=== PATIENT | female | born 1960 | race Caucasian/White ===

== ENCOUNTER → 2018-06-01 13:29 | Outpatient (CLI) | payer OTHER, SELFPAY ==
--- NOTE | 2018-06-01 | OV.WND_ITS ---
Progress Note Details Patient Name: Shonda Fitzgerald Patient Number: [id number] PatientPatientDate: 06/01/2018 Clinician: Aileen Amor Physician / Remote Mortgage Underwriter: Navid Sanches SUBJECTIVE Chief Complaint This information was obtained from the patient Non-healing wound, post MOHS to Right lower extremety. Allergies penicillin, Percodan, biax, shellfish derived HPI This information was obtained from the patient 06/01/18. Seen by Dr. Sanches. 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 She reports persistent pain at the ulcer site, but no fever or other acute symptoms, and is not currently on antibiotics. Social History This information was obtained from the patient Current every day smoker, Alcohol Use - Rarely, Children - 1, Lives in - Private home, Marital Status - , Occupation - dining room supervisor, Tobacco Use (deprecated) - less than 1/2 ppd Past Medical History This information was obtained from the patient Patient has a medical history of: Dario's thyroiditis Anxiety Hypertension Surgical History This information was obtained from the patient Patient has a surgical history of: Ovary removed Ovarian cyst removed Skin cancer removal Complaints and Symptoms This information was obtained from the patient Patient complains of: General Notes: I have reviewed and concur with the Review of Systems and Past Family Social History documents completed by the clinician, I have reviewed and concur with the Wound Assessment document completed by the clinician Integumentary (Hair/Skin/Nails): Open Sore Prior Wound History: Drainage, Erythema, Pain Patient denies complaints or symptoms related to: Cardiovascular (Central): Irregular heart beat Cardiovascular (Central/Peripheral): Intermittent Claudication, Lower extremity (leg) resting pain, Lower extremity (leg) swelling Constitutional Symptoms (General Health): Chills, Fever Ear/Nose/Mouth/Throat: Hearing Loss / Aid Hematologic/Lymphatic: Bleeding / Clotting Disorders, Bleeding Tendency Neurological: Loss of Protective Sensation Respiratory: Shortness of Breath General Notes: Up to date Additional Information Does patient have a history of Cancer? Yes? Complete all questions.: Yes Location of Cancer: Skin Patient underwent Radiation Treatment? If yes, answer question below.: No Medications atorvastatin 40 mg tablet oral tablet oral once daily metoprolol tartrate 50 mg tablet oral tablet oral once daily fenofibrate 40 mg tablet oral tablet oral once daily escitalopram 5 mg tablet oral tablet oral once daily gentamicin 0.1 % topical ointment topical ointment topical once daily for 7 days for infected ulcer OBJECTIVE Constitutional BP normal; Low grade fever; Alert and in no distress. Well developed. Alert. Clean appearing.. Height/Length: 65 in (165.1 cm), Weight: 189 lbs (85.91 kgs), BMI: 31.4, Temperature: 99.1 ?F (37.28 ?C), Pulse: 53 bpm, Respiratory Rate: 16 breaths/min, Blood Pressure: 135/75 mmHg, Pulse Oximetry: 96 %. Ears, Nose, Mouth, and Throat: No clinically significant hearing loss on informal examination. Respiratory: No respiratory distress. Even respirations and without use of accessory muscles.. Cardiovascular: Pedal pulses 2+ on affected limb. Affected extremity exhibits no peripheral edema or cyanosis, is warm, and is well perfused. Capillary refill is less than 2 seconds. Integumentary (Hair, Skin) Mild periwound erythema without warmth. Refer to appropriate clinician wound documentation for this visit; right lower leg ulcer extends to subcut with base partially covered with pink granulation, remainder fibrin and slough. Wound #1 Right, Posterior Leg is a chronic Full Thickness Surgical Wound and has received a status of Not Healed. Initial wound encounter measurements are 1.2cm length x 1.5cm width x 0.1cm depth, with an area of 1.8 sq cm and a volume of 0.18 cubic cm. No tunneling has been noted. No sinus tract has been noted. No undermining has been noted. There is a moderate amount of serous drainage noted which has no odor. The patient reports a wound pain of level 4/10. The wound margin is attached. Wound bed has Yes epithelialization, No eschar, Yes slough, Yes pink, firm granulation. The periwound skin texture is normal. The periwound skin moisture is normal. The periwound skin color is normal. The temperature of the periwound skin is WNL. Periwound skin does not exhibit signs or symptoms of infection. Local Pulse is Palpable. Neurological: Cranial nerves grossly intact with symmetric function normal by informal observation.. ASSESSMENT Active Problems ICD-10 (Encounter Diagnosis) L97.522 - Non-pressure chronic ulcer of other part of left foot with fat layer exposed (Encounter Diagnosis) L08.89 - Other specified local infections of the skin and subcutaneous tissue PROCEDURES Wound #1 Wound #1 (Surgical Wound) is located on the right, posterior leg. A skin/ subcutaneous tissue level surgical debridement with a total area debrided of 1.8 sq cm was performed by Navid Sanches MD. Subcutaneous was removed along with devitalized tissue: exudate and slough. The following instrument(s) were used: curette. Pain control was achieved using 4% Lido. A time out was conducted prior to the start of the procedure. A minimal amount of bleeding was controlled with n/a. The procedure was tolerated well with a pain level of 0 throughout and a pain level of 0 following the procedure. Post Debridement Measurements: 1.2cm length x 1.5cm width x 0.2cm depth; with an area of 1.8 sq cm and a volume of 0.36 cubic cm; Additional Information Muscle fascia or bone removed and sent to pathology?: No PLAN Wound Orders: Wound #1 Right, Posterior Leg Anesthetic Topical Xylocaine to wound bed. - In clinic only Cleanser Cleanse Wound: - Normal saline in clinic May Shower. - Please avoid getting tap water in wound or on dressing. Please cover while in the shower Topical Treatments Antibiotic/Antimicrobial Ointment/Cream. - Gentamicin ointment. Dressings Primary dressing: - Bordered foam Change Dressing: - Every other day Additional Orders: Follow-Up Appointments Return Appointment: - - One week Other information: If you develop fever, chills, increased pain, drainage, redness or swelling please call our office. If after hours, respond to the ER. Should you experience any significant changes in your wound(s) or have any questions regarding your home care instructions please contact the wound center @ [phone]. If after hours, contact your primary care physician or go to the hospital emergency room. Scribing Attestation I attest, as the nurse, that I scribed these orders for the physician. Laboratory: Culture Wound General Notes: We will call with any positive wound cultures requiring oral antibiotics. I've reviewed the clinician's documentation and agree with the evaluation and plan as written. In addition, the patient's ulcer demonstrates evidence of non-viable devitalized tissue which will continue to benefit from sharp debridement to help promote granulation and expedite healing. Also, I've cultured the ulcer and will start treating a wound infection with topical gentamicin then add an oral antibiotic pending the culture results. Electronic Signature(s) Signed By: Date: Navid Sanches MD 06/22/2018 08:43:34 Entered By: Navid Sanches on 06/22/2018 08:18:22
== END ==
PROVIDERS: PCP Physician Assistant Medical; Referring Provider Dermatology MOHS-Micrographic Surgery; Visit Provider Internal Medicine
DX: L97.522 Non-pressure chronic ulcer of other part of left foot with fat layer exposed (principal); L08.89 Other specified local infections of the skin and subcutaneous tissue
CPT/HCPCS: 11042; 87070; 87075; 87077; 87147; 87186; 87205; 99213

== ENCOUNTER → 2018-06-08 08:33 | Outpatient (CLI) | payer OTHER, SELFPAY ==
--- NOTE | 2018-06-08 | OV.WND_ITS ---
Progress Note Details Patient Name: Shonda Fitzgerald Patient Number: [id number] PatientPatientDate: 06/08/2018 Clinician: Santa Zhong Clinician Cosigner: [place] Physician / Hearing Aid Technician: Navid Sanches SUBJECTIVE Chief Complaint This information was obtained from the patient Non-healing wound, post MOHS to Right lower extremity. Allergies penicillin, Percodan, biax, shellfish derived HPI This information was obtained from the patient 06/08/18. Seen by Dr. Sanches. The patient does not report pain or significant drainage associated with the right lower leg non-pressure ulcer that started as a surgical wound following a Moh's procedure and she's applying topical gentamicin as recommended to treat the recent coag negative Staph culture. 06/01/18. Seen by Dr. Sanches. 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 She reports persistent pain at the ulcer site, but no fever or other acute symptoms, and is not currently on antibiotics. Past Medical History This information was obtained from the patient Patient has a medical history of: Dario's thyroiditis Anxiety Hypertension Complaints and Symptoms This information was obtained from the patient Patient complains of: General Notes: I have reviewed and concur with the Review of Systems and Past Family Social History documents completed by the clinician, I have reviewed and concur with the Wound Assessment document completed by the clinician Integumentary (Hair/Skin/Nails): Open Sore Prior Wound History: Drainage, Erythema, Pain Patient denies complaints or symptoms related to: Cardiovascular (Central): Irregular heart beat Cardiovascular (Central/Peripheral): Intermittent Claudication, Lower extremity (leg) resting pain, Lower extremity (leg) swelling Constitutional Symptoms (General Health): Chills, Fever Ear/Nose/Mouth/Throat: Hearing Loss / Aid Hematologic/Lymphatic: Bleeding / Clotting Disorders, Bleeding Tendency Neurological: Loss of Protective Sensation Respiratory: Shortness of Breath Additional Information Does patient have a history of Cancer? Yes? Complete all questions.: Yes Location of Cancer: Skin Patient underwent Radiation Treatment? If yes, answer question below.: No OBJECTIVE Constitutional BP elevated; Afebrile; Alert and in no distress. Well developed. Alert. Clean appearing.. Height/Length: 65 in (165.1 cm), Weight: 187.8 lbs (85.36 kgs), BMI: 31.2, Temperature: 98.9 ?F (37.17 ?C), Pulse: 56 bpm, Respiratory Rate: 16 breaths/min, Blood Pressure: 143/72 mmHg, Pulse Oximetry: 97 %. Cardiovascular: Affected extremity exhibits no peripheral edema or cyanosis, is warm, and is well perfused. Capillary refill is less than 2 seconds. Integumentary (Hair, Skin) No periwound erythema, warmth, or significant drainage. No periwound rashes appreciated or noted otherwise.. Refer to appropriate clinician wound documentation for this visit; right lower leg ulcer extends to subcut with base partially covered with pink granulation, remainder fibrin and slough. Wound #1 Right, Posterior Leg is a chronic Full Thickness Surgical Wound and has received a status of Not Healed. Subsequent wound encounter measurements are 1cm length x 0.6cm width x 0.2cm depth, with an area of 0.6 sq cm and a volume of 0.12 cubic cm. No tunneling has been noted. No sinus tract has been noted. No undermining has been noted. There is a scant amount of serous drainage noted which has no odor. The patient reports a wound pain of level 4/10. The wound margin is attached. Wound bed has Yes epithelialization, No eschar, Yes slough, Yes pink, firm granulation. The periwound skin texture is normal. The periwound skin color is normal. The periwound skin did not exhibit: Dry/Scaly, Maceration. The temperature of the periwound skin is WNL. Periwound skin does not exhibit signs or symptoms of infection. Local Pulse is Palpable. Neurological: Cranial nerves grossly intact with symmetric function normal by informal observation.. ASSESSMENT Active Problems ICD-10 (Encounter Diagnosis) L97.522 - Non-pressure chronic ulcer of other part of left foot with fat layer exposed (Encounter Diagnosis) B95.7 - Other staphylococcus as the cause of diseases classified elsewhere PROCEDURES Wound #1 Wound #1 (Surgical Wound) is located on the right, posterior leg. A skin/ subcutaneous tissue level surgical debridement with a total area debrided of 0.6 sq cm was performed by Navid Sanches MD. Subcutaneous was removed along with devitalized tissue: exudate and slough. The following instrument(s) were used: curette. Pain control was achieved using 4% Lido. A time out was conducted prior to the start of the procedure. A moderate amount of bleeding was controlled with silver nitrate. The procedure was tolerated well with a pain level of 0 throughout and a pain level of 0 following the procedure. Post Debridement Measurements: 1cm length x 0.6cm width x 0.3cm depth; with an area of 0.6 sq cm and a volume of 0.18 cubic cm; Additional Information Muscle fascia or bone removed and sent to pathology?: No PLAN Wound Orders: Wound #1 Right, Posterior Leg Anesthetic Topical Xylocaine to wound bed. - In clinic only. Cleanser Cleanse Wound: - Normal saline in clinic. Distilled water at home. May Shower. - Please avoid getting tap water in wound or on dressing. Please cover while in the shower. Topical Treatments Antibiotic/Antimicrobial Ointment/Cream. - Gentamicin ointment. Dressings Primary dressing: - Bordered foam. Change Dressing: - Every other day. Follow-Up Appointments Return Appointment: - - One week. Other information: If you develop fever, chills, increased pain, drainage, redness or swelling please call our office. If after hours, respond to the ER. Should you experience any significant changes in your wound(s) or have any questions regarding your home care instructions please contact the wound center @ [phone]. If after hours, contact your primary care physician or go to the hospital emergency room. Scribing Attestation I attest, as the nurse, that I scribed these orders for the physician. I've reviewed the clinician's documentation and agree with the evaluation and plan as written. In addition, the patient's ulcer demonstrates evidence of non-viable devitalized tissue which will continue to benefit from sharp debridement to help promote granulation and expedite healing. Also, we'll continue treating the Staph infection with topical gentamicin. Electronic Signature(s) Signed By: Date: Navid Sanches MD 06/09/2018 13:52:56 Entered By: Navid Sanches on 06/09/2018 13:45:14
== END ==
PROVIDERS: PCP Physician Assistant Medical; Visit Provider Internal Medicine
DX: B95.7 Other staphylococcus as the cause of diseases classified elsewhere (principal); L97.812 Non-pressure chronic ulcer of other part of right lower leg with fat layer exposed
CPT/HCPCS: 11042

== ENCOUNTER → 2018-06-16 08:34 | Outpatient (CLI) | payer OTHER, SELFPAY ==
--- NOTE | 2018-06-16 | OV.WND_ITS ---
Progress Note Details Patient Name: Shonda Fitzgerald Patient Number: [id number] PatientPatientDate: 06/16/2018 Clinician: Jessica Hanna Clinician Cosigner: [place] Physician / Diesel Engine Fitter: Navid Sanches SUBJECTIVE Chief Complaint This information was obtained from the patient Non-healing wound, post MOHS to Right lower extremity. Allergies penicillin, Percodan, biax, shellfish derived HPI This information was obtained from the patient 06/16/18. Seen by Dr. Sanches. The patient does not report pain or significant drainage associated with the right lower leg non-pressure ulcer since her last visit and she's applying topical gentamicin as recommended to treat the recent coag negative Staph culture. 06/08/18. Seen by Dr. Sanches. The patient does not report pain or significant drainage associated with the right lower leg non-pressure ulcer that started as a surgical wound following a Moh's procedure and she's applying topical gentamicin as recommended to treat the recent coag negative Staph culture. 06/01/18. Seen by Dr. Sanches. 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 She reports persistent pain at the ulcer site, but no fever or other acute symptoms, and is not currently on antibiotics. Past Medical History This information was obtained from the patient Patient has a medical history of: Dario's thyroiditis Anxiety Hypertension Complaints and Symptoms This information was obtained from the patient Patient complains of: General Notes: I have reviewed and concur with the Review of Systems and Past Family Social History documents completed by the clinician, I have reviewed and concur with the Wound Assessment document completed by the clinician Integumentary (Hair/Skin/Nails): Open Sore Prior Wound History: Drainage, Erythema, Pain Patient denies complaints or symptoms related to: Cardiovascular (Central): Irregular heart beat Cardiovascular (Central/Peripheral): Intermittent Claudication, Lower extremity (leg) resting pain, Lower extremity (leg) swelling Constitutional Symptoms (General Health): Chills, Fever Ear/Nose/Mouth/Throat: Hearing Loss / Aid Hematologic/Lymphatic: Bleeding / Clotting Disorders, Bleeding Tendency Neurological: Loss of Protective Sensation Respiratory: Shortness of Breath Additional Information Does patient have a history of Cancer? Yes? Complete all questions.: Yes Location of Cancer: Skin Patient underwent Radiation Treatment? If yes, answer question below.: No OBJECTIVE Constitutional BP elevated; Afebrile; Alert and in no distress. Height/Length: 65 in (165.1 cm) , Weight: 187.8 lbs (85.36 kgs), BMI: 31.2, Temperature: 98.2 ?F (36.78 ?C), Pulse: 60 bpm , Respiratory Rate: 17 breaths/min, Blood Pressure: 157/79 mmHg, Pulse Oximetry: 97 %. Ears, Nose, Mouth, and Throat: No clinically significant hearing loss on informal examination. Respiratory: No respiratory distress. Even respirations and without use of accessory muscles.. Cardiovascular: Affected extremity exhibits no peripheral edema or cyanosis, is warm, and is well perfused. Capillary refill is less than 2 seconds. Integumentary (Hair, Skin) No periwound erythema, warmth, or significant drainage. No periwound rashes appreciated or noted otherwise.. Refer to appropriate clinician wound documentation for this visit; right lower leg ulcer extends to subcut with base partially covered with pink granulation, remainder fibrin and slough. Wound #1 Right, Posterior Leg is a chronic Full Thickness Surgical Wound and has received a status of Not Healed. Subsequent wound encounter measurements are 2cm length x 0.5cm width x 0.1cm depth, with an area of 1 sq cm and a volume of 0.1 cubic cm. No tunneling has been noted. No sinus tract has been noted. No undermining has been noted. There is a scant amount of serous drainage noted which has no odor. The patient reports a wound pain of level 0/10. The wound margin is attached. Wound bed has Yes epithelialization, No eschar, Yes slough, Yes bright red, pink, firm granulation. The periwound skin texture is normal. The periwound skin color is normal. The periwound skin exhibited: Moist, Maceration. The periwound skin did not exhibit: Dry/Scaly. The temperature of the periwound skin is WNL. Periwound skin does not exhibit signs or symptoms of infection. Local Pulse is Palpable. Neurological: Cranial nerves grossly intact with symmetric function normal by informal observation.. ASSESSMENT Active Problems ICD-10 (Encounter Diagnosis) L97.522 - Non-pressure chronic ulcer of other part of left foot with fat layer exposed (Encounter Diagnosis) B95.7 - Other staphylococcus as the cause of diseases classified elsewhere PROCEDURES Wound #1 Wound #1 (Surgical Wound) is located on the right, posterior leg. A skin/ subcutaneous tissue level surgical debridement with a total area debrided of 1 sq cm was performed by Navid Sanches MD. Subcutaneous was removed along with devitalized tissue: slough. The following instrument(s) were used: curette. Pain control was achieved using 4% Lido. A time out was conducted prior to the start of the procedure. A minimal amount of bleeding was controlled with n/a. The procedure was tolerated well with a pain level of 0 throughout and a pain level of 0 following the procedure. Post Debridement Measurements: 2cm length x 0.5cm width x 0.2cm depth; with an area of 1 sq cm and a volume of 0.2 cubic cm; Additional Information Muscle fascia or bone removed and sent to pathology?: No PLAN Wound Orders: Wound #1 Right, Posterior Leg Anesthetic Topical Xylocaine to wound bed. - In clinic only. Cleanser Cleanse Wound: - Normal saline in clinic. Distilled water at home. May Shower. - Please avoid getting tap water in wound or on dressing. Please cover while in the shower. Topical Treatments Antibiotic/Antimicrobial Ointment/Cream. - Triple antibiotic on wound base. Dressings Primary dressing: - Bordered foam. Change Dressing: - Every other day. Follow-Up Appointments Return Appointment: - - 10 days- two weeks Other information: If you develop fever, chills, increased pain, drainage, redness or swelling please call our office. If after hours, respond to the ER. Should you experience any significant changes in your wound(s) or have any questions regarding your home care instructions please contact the wound center @ [phone]. If after hours, contact your primary care physician or go to the hospital emergency room. Scribing Attestation I attest, as the nurse, that I scribed these orders for the physician. I've reviewed the clinician's documentation and agree with the evaluation and plan as written. In addition, the patient's ulcer demonstrates evidence of non-viable devitalized tissue which will continue to benefit from sharp debridement to help promote granulation and expedite healing. Also, the patient will discontinue use of gentamicin ointment and apply topical triple antibiotic hydrate the ulcer base. Electronic Signature(s) Signed By: Date: Navid Sanches MD 06/17/2018 08:14:12 Entered By: Navid Sanches on 06/17/2018 08:13:12
== END ==
PROVIDERS: PCP Physician Assistant Medical; Visit Provider Internal Medicine
DX: B95.7 Other staphylococcus as the cause of diseases classified elsewhere (principal); L97.812 Non-pressure chronic ulcer of other part of right lower leg with fat layer exposed
CPT/HCPCS: 11042

== ENCOUNTER → 2018-06-29 08:42 | Outpatient (CLI) | payer OTHER, SELFPAY ==
--- NOTE | 2018-06-29 | OV.WND_ITS ---
Progress Note Details Patient Name: Shonda Fitzgerald Patient Number: [id number] PatientPatientDate: 06/29/2018 Clinician: Jessica Hanna Clinician Cosigner: Santa Zhong Physician / Car Retarder Operator: Navid Sanches SUBJECTIVE Chief Complaint This information was obtained from the patient Non-healing wound, post MOHS to Right lower extremity. Allergies penicillin, Percodan, biax, shellfish derived HPI This information was obtained from the patient 06/29/18. Seen by Dr. Sanches. The patient does not report pain or significant drainage associated with the right lower leg non-pressure ulcer since her last visit. 06/16/18. Seen by Dr. Sanches. The patient does not report pain or significant drainage associated with the right lower leg non-pressure ulcer since her last visit and she's applying topical gentamicin as recommended to treat the recent coag negative Staph culture. 06/08/18. Seen by Dr. Sanches. The patient does not report pain or significant drainage associated with the right lower leg non-pressure ulcer that started as a surgical wound following a Moh's procedure and she's applying topical gentamicin as recommended to treat the recent coag negative Staph culture. 06/01/18. Seen by Dr. Sanches. 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 She reports persistent pain at the ulcer site, but no fever or other acute symptoms, and is not currently on antibiotics. Past Medical History This information was obtained from the patient Patient has a medical history of: Dario's thyroiditis Anxiety Hypertension Complaints and Symptoms This information was obtained from the patient Patient complains of: General Notes: I have reviewed and concur with the Review of Systems and Past Family Social History documents completed by the clinician, I have reviewed and concur with the Wound Assessment document completed by the clinician Integumentary (Hair/Skin/Nails): Open Sore Prior Wound History: Drainage, Erythema, Pain Patient denies complaints or symptoms related to: Cardiovascular (Central): Irregular heart beat Cardiovascular (Central/Peripheral): Intermittent Claudication, Lower extremity (leg) resting pain, Lower extremity (leg) swelling Constitutional Symptoms (General Health): Chills, Fever Ear/Nose/Mouth/Throat: Hearing Loss / Aid Hematologic/Lymphatic: Bleeding / Clotting Disorders, Bleeding Tendency Neurological: Loss of Protective Sensation Respiratory: Shortness of Breath Additional Information Does patient have a history of Cancer? Yes? Complete all questions.: Yes Location of Cancer: Skin Patient underwent Radiation Treatment? If yes, answer question below.: No OBJECTIVE Constitutional BP elevated; Low grade fever; Alert and in no distress. Well developed. Alert. Clean appearing.. Height/Length: 65 in (165.1 cm), Weight: 187.8 lbs (85.36 kgs), BMI : 31.2, Temperature: 99.4 ?F (37.44 ?C), Pulse: 64 bpm, Respiratory Rate: 17 breaths/min , Blood Pressure: 158/76 mmHg, Pulse Oximetry: 98 %. Ears, Nose, Mouth, and Throat: No clinically significant hearing loss on informal examination. Integumentary (Hair, Skin) No periwound erythema, warmth, or significant drainage. No periwound rashes appreciated or noted otherwise.. Refer to appropriate clinician wound documentation for this visit; right lower leg wound extends to subcut with base partially covered with pink granulation, remainder fibrin and slough. Wound #1 Right, Posterior Leg is a chronic Full Thickness Surgical Wound and has received a status of Not Healed. Subsequent wound encounter measurements are 1.3cm length x 0.3cm width x 0.1cm depth, with an area of 0.39 sq cm and a volume of 0.039 cubic cm. No tunneling has been noted. No sinus tract has been noted. No undermining has been noted. There is a scant amount of serous drainage noted which has no odor. The patient reports a wound pain of level 0/10. The wound margin is attached. Wound bed has Yes epithelialization, No eschar, Yes slough, Yes pink, firm granulation. The periwound skin texture is normal. The periwound skin moisture is normal. The periwound skin color is normal. The temperature of the periwound skin is WNL. Periwound skin does not exhibit signs or symptoms of infection. Local Pulse is Palpable. Neurological: Cranial nerves grossly intact with symmetric function normal by informal observation.. ASSESSMENT Active Problems ICD-10 (Encounter Diagnosis) L97.522 - Non-pressure chronic ulcer of other part of left foot with fat layer exposed PROCEDURES Wound #1 Wound #1 (Surgical Wound) is located on the right, posterior leg. A non- selective mechanical debridement was performed by Navid Sanches MD. Non-viable tissue was removed.The procedure was tolerated well with a pain level of 0 throughout and a pain level of 0 following the procedure. Post Debridement Measurements: 1.3cm length x 0.3cm width x 0.1cm depth; with an area of 0.39 sq cm and a volume of 0.039 cubic cm; PLAN Wound Orders: Wound #1 Right, Posterior Leg Anesthetic Topical Xylocaine to wound bed. - In clinic only. Cleanser Cleanse Wound: - Normal saline in clinic. Distilled water at home. May Shower. - Please avoid getting tap water in wound or on dressing. Please cover while in the shower. Dressings Primary dressing: - Bordered foam. Change Dressing: - Every other day. Follow-Up Appointments Return Appointment: - - 10 days- two weeks Other information: If you develop fever, chills, increased pain, drainage, redness or swelling please call our office. If after hours, respond to the ER. Should you experience any significant changes in your wound(s) or have any questions regarding your home care instructions please contact the wound center @ [phone]. If after hours, contact your primary care physician or go to the hospital emergency room. Scribing Attestation I attest, as the nurse, that I scribed these orders for the physician. I've reviewed the clinician's documentation and agree with the evaluation and plan as written. In addition the patient's wound demonstrates evidence of non-viable devitalized tissue which will continue to benefit from sharp debridement to help promote granulation and expedite healing. Electronic Signature(s) Signed By: Date: Navid Sanches MD 06/30/2018 06:45:54 Entered By: Navid Sanches on 06/29/2018 14:55:52
== END ==
PROVIDERS: PCP Physician Assistant Medical; Visit Provider Internal Medicine
DX: I87.311 Chronic venous hypertension (idiopathic) with ulcer of right lower extremity (principal)
CPT/HCPCS: 99212

== ENCOUNTER → 2018-07-13 08:24 | Outpatient (CLI) | payer OTHER, SELFPAY ==
--- NOTE | 2018-07-13 | OV.WND_ITS ---
Progress Note Details Patient Name: Shonda Fitzgerald Patient Number: [id number] PatientPatientDate: 07/13/2018 Clinician: Jessica Hanna Clinician Cosigner: [place] Physician / Peanut Blancher: Navid Sanches SUBJECTIVE Chief Complaint This information was obtained from the patient Non-healing wound, post MOHS to Right lower extremity. Allergies penicillin, Percodan, biax, shellfish derived HPI This information was obtained from the patient 07/13/18. Seen by Dr. Sanches. The patient does not report pain or significant drainage associated with the right lower leg non-pressure ulcer since her last visit. 06/29/18. Seen by Dr. Sanches. The patient does not report pain or significant drainage associated with the right lower leg non-pressure ulcer since her last visit. 06/16/18. Seen by Dr. Sanches. The patient does not report pain or significant drainage associated with the right lower leg non-pressure ulcer since her last visit and she's applying topical gentamicin as recommended to treat the recent coag negative Staph culture. 06/08/18. Seen by Dr. Sanches. The patient does not report pain or significant drainage associated with the right lower leg non-pressure ulcer that started as a surgical wound following a Moh's procedure and she's applying topical gentamicin as recommended to treat the recent coag negative Staph culture. 06/01/18. Seen by Dr. Sanches. 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 She reports persistent pain at the ulcer site, but no fever or other acute symptoms, and is not currently on antibiotics. Past Medical History This information was obtained from the patient Patient has a medical history of: Dario's thyroiditis Anxiety Hypertension Complaints and Symptoms This information was obtained from the patient Patient complains of: General Notes: I have reviewed and concur with the Review of Systems and Past Family Social History documents completed by the clinician, I have reviewed and concur with the Wound Assessment document completed by the clinician Integumentary (Hair/Skin/Nails): Open Sore Prior Wound History: Drainage, Erythema, Pain Patient denies complaints or symptoms related to: Cardiovascular (Central): Irregular heart beat Cardiovascular (Central/Peripheral): Intermittent Claudication, Lower extremity (leg) resting pain, Lower extremity (leg) swelling Constitutional Symptoms (General Health): Chills, Fever Ear/Nose/Mouth/Throat: Hearing Loss / Aid Hematologic/Lymphatic: Bleeding / Clotting Disorders, Bleeding Tendency Neurological: Loss of Protective Sensation Respiratory: Shortness of Breath Additional Information Does patient have a history of Cancer? Yes? Complete all questions.: Yes Location of Cancer: Skin Patient underwent Radiation Treatment? If yes, answer question below.: No OBJECTIVE Constitutional BP elevated; Low grade fever; Alert and in no distress. Well developed. Alert. Clean appearing.. Height/Length: 65 in (165.1 cm), Weight: 187.8 lbs (85.36 kgs), BMI : 31.2, Temperature: 99.2 ?F (37.33 ?C), Pulse: 60 bpm, Respiratory Rate: 17 breaths/min , Blood Pressure: 148/79 mmHg, Pulse Oximetry: 99 %. Respiratory: No respiratory distress. Even respirations and without use of accessory muscles.. Cardiovascular: Affected extremity exhibits no peripheral edema or cyanosis, is warm, and is well perfused. Capillary refill is less than 2 seconds. Integumentary (Hair, Skin) Refer to appropriate clinician wound documentation for this visit.. Wound #1 Right, Posterior Leg is a chronic Full Thickness Surgical Wound and has received an outcome of Healed - new wound(s) - prevent. Subsequent wound encounter measurements are 0cm length x 0cm width x 0cm depth, with an area of 0 sq cm and a volume of 0 cubic cm. No tunneling has been noted. No sinus tract has been noted. No undermining has been noted. There was no drainage noted. The patient reports a wound pain of level 0/10. The wound margin is attached. Wound bed has Yes epithelialization, No eschar, No slough, Yes pink, firm granulation. The periwound skin texture is normal. The periwound skin moisture is normal. The periwound skin color is normal. The temperature of the periwound skin is WNL. Periwound skin does not exhibit signs or symptoms of infection. Local Pulse is Palpable. Neurological: Cranial nerves grossly intact with symmetric function normal by informal observation.. ASSESSMENT Active Problems ICD-10 (Encounter Diagnosis) L97.522 - Non-pressure chronic ulcer of other part of left foot with fat layer exposed PLAN Wound Orders: Wound #1 Right, Posterior Leg Anesthetic Topical Xylocaine to wound bed. - In clinic only. Cleanser Cleanse Wound: - Normal saline in clinic. Distilled water at home. May Shower. - Please avoid getting tap water in wound or on dressing. Please cover while in the shower. Dressings Primary dressing: - Bordered foam. Change Dressing: - Every other day for one week, then leave it open. Follow-Up Appointments Other information: If you develop fever, chills, increased pain, drainage, redness or swelling please call our office. If after hours, respond to the ER. Should you experience any significant changes in your wound(s) or have any questions regarding your home care instructions please contact the wound center @ [phone]. If after hours, contact your primary care physician or go to the hospital emergency room. Discharge from Outpatient Services. Scribing Attestation I attest, as the nurse, that I scribed these orders for the physician. I've reviewed the clinician's documentation and agree with the evaluation and plan as written. In addition the patient's last remiaining complex wound is now healed. The patient is invited to return to our clinic for treatment of any future complex wounds. Post wound care and strategies to avoid recurrences were discussed. Electronic Signature(s) Signed By: Date: Navid Sanches MD 07/14/2018 07:09:40 Entered By: Navid Sanches on 07/14/2018 07:08:36
== END ==
PROVIDERS: PCP Physician Assistant Medical; Visit Provider Internal Medicine
CPT/HCPCS: 99213